=== PATIENT | male | born 1955 | race Caucasian/White ===

== ENCOUNTER → 2017-05-28 | Outpatient (CLI) | payer OTHER | LOC: FLAB 09:31 | PROVIDERS: ATTEND Family Medicine | DX: M19.071 Primary osteoarthritis, right ankle and foot (principal) ==

== ENCOUNTER → 2017-06-03 | Outpatient (CLI) | payer OTHER | LOC: BMCIMAGING 13:51 | PROVIDERS: ATTEND Podiatrist Foot & Ankle Surgery | DX: M20.22 Hallux rigidus, left foot (principal); M19.272 Secondary osteoarthritis, left ankle and foot ==